=== PATIENT | female | born 1970 | race Caucasian/White ===

== ENCOUNTER → 2016-03-24 | Outpatient (CLI) | payer OTHER, MEDICARE ==
[~2016-03-24] VITALS: Ht 162.6 cm; Wt 130.6 kg
[~2016-03-24] MED LIST: ALLEGRA30 MG/5 ML PO; CALCIUM 600 PLU1 TAB PO; CALCIUM ANTAC1000 M2 PO; CARDIZEM CD360 MG PO; CHEWABLE-V1 TAB.CHEW PO; CINNAMON500 MG PO; COZAAR 50MG50 MG/TAB PO; CYMBALTA 30MG30 MG PO; CYMBALTA 60MG60 MG PO; FLEXERIL 1010 MG/TAB PO; FLINTSTONES COM1 CT1 PO; FLONASEALLERGY NS; HAIRSKINNAILS PO; HCTZ 25MG TAB25 MG PO; HEADACHE RELIE1 EACH PO; HYGROTON 2525 MG/TAB PO; K-DUR 10 MEQ T10 MEQ PO; KLOR-CON M2020 MEQ PO; LAXATIVE MAXIMU25 MG PO; LYRICA 150MG C150 MG PO; LYRICA200 MG PO; MELATONIN3 MG PO; MOBIC 7.5MG7.5 MG PO; NATURE'S BLE1000 MCG PO; NORCO 325 MG-51 TAB PO; NORCO 325 MG-7.1 TAB PO; PHARMASSURE ZIN50 MG PO; PHENERGAN 25 TA25 MG PO; PHENTERMINE15 MG PO; PRENATAL PLUS PO; PRILOSEC 20MG20 MG PO; PROBIOTIC-SUNMARK PO; PROTONIX 40MG T40 MG PO; STOOL SOFTENER100 M2 PO; SYNTHROID 0.0.025 MG PO; SYNTHROID0.075 MG/T PO; TREXIMET 500 MG1 TAB PO; TURMERIC500 MG PO; TYLEINFANT; TYLENOL 8 HR PO; VITAMIN B-1000 MCG/T SL; VITAMIND3 5000 PO; ZOFRAN 4MG T4 MG/TAB PO
[2016-03-24 10:39] VITALS: BP 139/57; PULSE 79
[2016-03-24 11:09] VITALS: BP 139/57; PULSE 79
[2016-03-24 15:50] VITALS: BP 139/57; PULSE 79
[2016-04-06 17:06] VITALS: BP 132/71; PULSE 66
== END ==
LOC: LIGHT 07-30 15:59
DX: I10 Essential (primary) hypertension (principal); E03.8 Other specified hypothyroidism; E66.01 Morbid (severe) obesity due to excess calories; Z68.42 Body mass index [BMI] 45.0-49.9, adult; F33.8 Other recurrent depressive disorders

== ENCOUNTER → 2016-04-21 | Outpatient (CLI) | payer OTHER, MEDICARE ==
[~2016-04-21] VITALS: Ht 162.6 cm; Wt 127.9 kg
== END ==
LOC: LIGHT 08:42
DX: I10 Essential (primary) hypertension (principal); E03.8 Other specified hypothyroidism; E66.01 Morbid (severe) obesity due to excess calories; Z68.42 Body mass index [BMI] 45.0-49.9, adult; F33.8 Other recurrent depressive disorders

== ENCOUNTER → 2016-05-19 | Outpatient (CLI) | payer OTHER, MEDICARE | LOC: BHSO 08:56 | DX: Z01.818 Encounter for other preprocedural examination (principal) ==

== ENCOUNTER → 2016-05-19 | Outpatient (CLI) | payer OTHER, MEDICARE ==
[~2016-05-19] VITALS: Ht 162.6 cm; Wt 129.5 kg
[2016-05-19 13:23] VITALS: BP 154/94; PULSE 60
== END ==
LOC: LIGHT 13:20
DX: I10 Essential (primary) hypertension (principal); F33.8 Other recurrent depressive disorders; E03.8 Other specified hypothyroidism; E66.01 Morbid (severe) obesity due to excess calories; Z68.42 Body mass index [BMI] 45.0-49.9, adult

== ENCOUNTER → 2016-06-27 | Outpatient (CLI) | payer OTHER, MEDICARE ==
[~2016-06-27] VITALS: Ht 162.6 cm; Wt 129.5 kg
[2016-06-27 14:26] VITALS: BP 136/76; PULSE 74
== END ==
LOC: LIGHT 14:20
DX: I10 Essential (primary) hypertension (principal); E03.8 Other specified hypothyroidism; F33.8 Other recurrent depressive disorders; E66.01 Morbid (severe) obesity due to excess calories; Z68.42 Body mass index [BMI] 45.0-49.9, adult; Z90.721 Acquired absence of ovaries, unilateral; Z90.49 Acquired absence of other specified parts of digestive tract

== ENCOUNTER 2016-07-13 09:36 | Day surgery (SDC) | payer OTHER, MEDICARE ==
[~2016-07-13] VITALS: Ht 162.6 cm; Wt 129.1 kg
[~2016-07-13 09:36] MED LIST changes: -ALLEGRA30 MG/5 ML PO; -CALCIUM ANTAC1000 M2 PO; -CHEWABLE-V1 TAB.CHEW PO; -K-DUR 10 MEQ T10 MEQ PO; -LAXATIVE MAXIMU25 MG PO; -NORCO 325 MG-51 TAB PO; -NORCO 325 MG-7.1 TAB PO; -SYNTHROID0.075 MG/T PO; -ZOFRAN 4MG T4 MG/TAB PO
[2016-07-13 10:38] VITALS: BP 141/84; PULSE 79; TEMP 97.9
[2016-07-13] MEDS ORDERED: NATURE'S BLE1000 MCG PO (10:43)
[2016-07-13] MEDS ORDERED: PHARMASSURE ZIN50 MG PO (10:44)
[2016-07-13] MEDS ORDERED: CINNAMON500 MG PO (10:47)
[2016-07-13] MEDS ORDERED: CALCIUM ANTAC1000 M2 PO (10:48)
[2016-07-13] MEDS ORDERED: SYNTHROID 0.0.025 MG PO (10:54)
[2016-07-13] MEDS ORDERED: ALLEGRA30 MG/5 ML PO (11:00)
[2016-07-13 12:08] VITALS: BP 112/78; PULSE 62; TEMP 97.7
[2016-07-13 12:23] VITALS: BP 119/76; PULSE 63
[2016-07-13 12:38] VITALS: BP 113/71; PULSE 56
[2016-07-13 12:53] VITALS: BP 97/60; PULSE 51
[2016-07-13 19:03] VITALS: BP 123/91; PULSE 60
== END 2016-07-13 13:20 | disposition home or self-care (01) ==
LOC: SDCO 09:36
DX: K31.7 Polyp of stomach and duodenum (principal); K44.9 Diaphragmatic hernia without obstruction or gangrene; K29.30 Chronic superficial gastritis without bleeding; M79.7 Fibromyalgia; M19.90 Unspecified osteoarthritis, unspecified site; I10 Essential (primary) hypertension; E03.9 Hypothyroidism, unspecified; K21.9 Gastro-esophageal reflux disease without esophagitis; M51.36 Other intervertebral disc degeneration, lumbar region; F33.9 Major depressive disorder, recurrent, unspecified; F41.1 Generalized anxiety disorder; Z79.899 Other long term (current) drug therapy
CPT/HCPCS: J2250; J2405; J3010; J7030

== ENCOUNTER → 2016-08-09 | Outpatient (CLI) | payer OTHER, MEDICARE ==
[~2016-08-09] MED LIST changes: +ALLEGRA30 MG/5 ML PO; +CALCIUM ANTAC1000 M2 PO; +CHEWABLE-V1 TAB.CHEW PO; +K-DUR 10 MEQ T10 MEQ PO; +LAXATIVE MAXIMU25 MG PO; +NORCO 325 MG-51 TAB PO; +NORCO 325 MG-7.1 TAB PO; +SYNTHROID0.075 MG/T PO; +ZOFRAN 4MG T4 MG/TAB PO
== END ==
LOC: LIGHT 12:17
DX: Z02.89 Encounter for other administrative examinations (principal)

== ENCOUNTER 2016-09-28 08:16 | Inpatient (IN) | payer OTHER, MEDICARE ==
[~2016-09-28] VITALS: Ht 160 cm; Wt 125.0 kg
[2016-09-28] VITALS (12 sets, daily range): BP systolic 97–127; BP diastolic 50–76; PULSE 55–78; TEMP 97.8–98.9
[~2016-09-28 08:16] MED LIST changes: -CHEWABLE-V1 TAB.CHEW PO; -K-DUR 10 MEQ T10 MEQ PO; -LAXATIVE MAXIMU25 MG PO; -NORCO 325 MG-51 TAB PO; -NORCO 325 MG-7.1 TAB PO; -SYNTHROID0.075 MG/T PO; -ZOFRAN 4MG T4 MG/TAB PO
[2016-09-28] MEDS ORDERED: K-DUR 10 MEQ T10 MEQ PO (09:06)
[2016-09-28] MEDS ORDERED: CHEWABLE-V1 TAB.CHEW PO (09:07)
[2016-09-28] MEDS ORDERED: NORCO 325 MG-51 TAB PO (09:13)
[2016-09-28] MEDS ORDERED: SYNTHROID0.075 MG/T PO (09:14)
[2016-09-28] MEDS ORDERED: COZAAR 50MG50 MG/TAB PO (09:15)
[2016-09-28] MEDS ORDERED: LYRICA200 MG PO (09:16)
[2016-09-28] MEDS ORDERED: LYRICA 150MG C150 MG PO (09:16)
[2016-09-28] MEDS ORDERED: PRENATAL PLUS PO (09:18)
[2016-09-28] MEDS ORDERED: LAXATIVE MAXIMU25 MG PO (09:21)
[2016-09-29 01:58] VITALS: BP 122/70; PULSE 69; TEMP 96.7
[2016-09-29 05:56] VITALS: BP 132/58; PULSE 79; TEMP 98.2
[2016-09-29 09:10] VITALS: BP 113/91; PULSE 71; TEMP 97.8
[2016-09-29 13:34] VITALS: BP 105/62; PULSE 62; TEMP 97.5
[2016-09-29] MEDS ORDERED: NORCO 325 MG-7.1 TAB PO (18:09)
[2016-09-29] MEDS ORDERED: ZOFRAN 4MG T4 MG/TAB PO (18:09)
== END 2016-09-29 19:00 | disposition home or self-care (01) | DRG 621 ==
LOC: INPTSU 08:16 → SURG 08:16
PROVIDERS: Surgery
PROC: 0BQR4ZZ (ICD-10-PCS; 2016-09-28)
PROC: 0DB64Z3 Excision of Stomach, Percutaneous Endoscopic Approach, Vertical (ICD-10-PCS; principal; 2016-09-28 10:30)
PROC: 0BQS4ZZ (ICD-10-PCS; 2016-09-28 10:30)
DX: E66.01 Morbid (severe) obesity due to excess calories (principal); K44.9 Diaphragmatic hernia without obstruction or gangrene; I10 Essential (primary) hypertension; E03.9 Hypothyroidism, unspecified; K21.9 Gastro-esophageal reflux disease without esophagitis; M79.7 Fibromyalgia; F41.1 Generalized anxiety disorder; Z68.42 Body mass index [BMI] 45.0-49.9, adult
CPT/HCPCS: A9284; J0330; J0461; J0694; J1100; J1170; J1885; J2270; J2405; J2550; J2704; J2710; J2765; J3010; J7120

== ENCOUNTER → 2016-10-03 | Outpatient (CLI) | payer OTHER, MEDICARE ==
[~2016-10-03] VITALS: Ht 160 cm; Wt 125.6 kg
[~2016-10-03] MED LIST changes: +CHEWABLE-V1 TAB.CHEW PO; +K-DUR 10 MEQ T10 MEQ PO; +LAXATIVE MAXIMU25 MG PO; +NORCO 325 MG-51 TAB PO; +NORCO 325 MG-7.1 TAB PO; +SYNTHROID0.075 MG/T PO; +ZOFRAN 4MG T4 MG/TAB PO
[2016-10-03 14:13] VITALS: BP 106/52; PULSE 68
== END ==
LOC: LIGHT
DX: I10 Essential (primary) hypertension (principal); E03.9 Hypothyroidism, unspecified; E66.01 Morbid (severe) obesity due to excess calories; Z68.42 Body mass index [BMI] 45.0-49.9, adult; Z71.3 Dietary counseling and surveillance; F33.9 Major depressive disorder, recurrent, unspecified

== ENCOUNTER → 2016-10-27 | Outpatient (CLI) | payer OTHER, MEDICARE | LOC: ZCOL.LAB 16:05 | DX: K65.1 Peritoneal abscess (principal) ==

== ENCOUNTER → 2016-10-31 | Outpatient (CLI) | payer OTHER, MEDICARE ==
[~2016-10-31] VITALS: Ht 160 cm; Wt 119.3 kg
[2016-10-31 15:29] VITALS: BP 124/80; PULSE 60
== END ==
LOC: LIGHT 15:05
DX: I10 Essential (primary) hypertension (principal); E03.9 Hypothyroidism, unspecified; E66.01 Morbid (severe) obesity due to excess calories; Z68.42 Body mass index [BMI] 45.0-49.9, adult; Z71.3 Dietary counseling and surveillance; F33.9 Major depressive disorder, recurrent, unspecified

== ENCOUNTER 2016-11-19 18:45 | Inpatient (IN) | payer OTHER, MEDICARE ==
[~2016-11-19] VITALS: Ht 162.6 cm; Wt 121.4 kg
[2016-11-19 20:11] LABS: BASO % 0.3 % (0.0-2.0); EOS # 0.1 (0.0-0.7); EOS % 0.4 % (0-4.0); GRAN # 8.5 (1.4-6.5); GRAN % 73.3 % (42.2-75.2); HEMATOCRIT 38.3 % (37.0-47.0); HEMOGLOBIN 12.8 g/dl (12.5-16.0); LYMPH # 2.3 (1.2-3.4); LYMPH % 19.5 % (20.0-51.0); MEAN CELL VOLUME 87 fl (80.0-100.0); MEAN CORPUSCULAR HEMOGLOBIN 29 pg (27.0-31.0); MEAN CORPUSCULAR HGB CONC 33 g/dl (33.0-37.0); MONO # 0.7 (0.1-0.6); MONO % 6.1 % (1.7-9.3); PLATELET COUNT 267 K/mm3 (130-400); RED BLOOD COUNT 4.39 M/mm3 (4.10-5.30); REDCELL DISTRIBUTION WIDTH-CV 14.9 % (11.5-14.5); WHITE BLOOD COUNT 11.6 K/mm3 (4.8-10.8)
[2016-11-19 20:14] LABS: PH 5 (5-8); URINE APPEARANCE Hazy; URINE BACTERIA Rare /hpf; URINE BILIRUBIN Negative (NEGATIVE); URINE BLOOD Negative (NEGATIVE); URINE COLOR Amber; URINE GLUCOSE Negative (NEGATIVE); URINE KETONE Negative (NEGATIVE); URINE RBC 0-2 /hpf; URINE WBC 0-2 /hpf
[2016-11-19 20:23] LABS: ADJUSTED CALCIUM 8.9 mg/dL (8.4-10.2); ALBUMIN 4.2 gm/dL (3.5-5.0); BILIRUBIN,TOTAL 0.6 mg/dL (0.0-1.0); C-REACTIVE PROTEIN 6.6 mg/dL (0.0-0.9); CALCIUM 9.1 mg/dL (8.4-10.2); CREATININE, serum 0.8 mg/dL (0.52-1.25); POTASSIUM 3.7 mmol/L (3.4-5.0); TOTAL PROTEIN 7.9 gm/dL (6.4-8.2)
[2016-11-19 22:57] VITALS: BP 147/69; PULSE 69; TEMP 98.4
[2016-11-20 01:19] VITALS: BP 140/81; PULSE 67; TEMP 98.3
[2016-11-20 05:25] VITALS: BP 117/59; PULSE 58; TEMP 97.7
[2016-11-20 08:00] VITALS: BP 134/77; PULSE 69; TEMP 98.3
[2016-11-20 12:50] VITALS: BP 119/51; PULSE 78; TEMP 98.4
[2016-11-20 13:00] VITALS: BP 135/67; PULSE 63; TEMP 98.5
[2016-11-20 13:15] VITALS: BP 102/55; PULSE 66; TEMP 98
== END 2016-11-20 15:20 | disposition home or self-care (01) | DRG 857 ==
LOC: COL.ER 18:45 → SURG 21:50
PROVIDERS: Emergency Medicine; Surgery
PROC: 0W9F00Z Drainage of Abdominal Wall with Drainage Device, Open Approach (ICD-10-PCS; principal; 2016-11-20 11:58)
DX: T81.4XXA Infection following a procedure, initial encounter (principal); L02.211 Cutaneous abscess of abdominal wall; Z68.42 Body mass index [BMI] 45.0-49.9, adult; B95.4 Other streptococcus as the cause of diseases classified elsewhere; E66.01 Morbid (severe) obesity due to excess calories; Z98.84 Bariatric surgery status; I10 Essential (primary) hypertension; M79.7 Fibromyalgia; F41.1 Generalized anxiety disorder; Z85.43 Personal history of malignant neoplasm of ovary
CPT/HCPCS: J2550; J2704; J3010; J7030; J7060; J7120; Q9967

== ENCOUNTER → 2017-01-09 | Outpatient (CLI) | payer OTHER, MEDICARE ==
[~2017-01-09] VITALS: Ht 162.6 cm; Wt 113.9 kg
[2017-01-09 14:46] VITALS: BP 142/88; PULSE 60
== END ==
LOC: LIGHT 10:11 → SUN.DIA 02-09 10:30 → LIGHT 02-09 10:35
DX: I10 Essential (primary) hypertension (principal); E03.9 Hypothyroidism, unspecified; E66.01 Morbid (severe) obesity due to excess calories; Z68.41 Body mass index [BMI] 40.0-44.9, adult; Z71.3 Dietary counseling and surveillance; F33.9 Major depressive disorder, recurrent, unspecified

== ENCOUNTER → 2017-04-03 | Outpatient (CLI) | payer OTHER, MEDICARE ==
[~2017-04-03] VITALS: Ht 162.6 cm; Wt 110.9 kg
== END ==
LOC: LIGHT 12-26 12:20
DX: I10 Essential (primary) hypertension (principal); E03.9 Hypothyroidism, unspecified; E66.01 Morbid (severe) obesity due to excess calories; Z68.41 Body mass index [BMI] 40.0-44.9, adult; Z71.3 Dietary counseling and surveillance; F33.9 Major depressive disorder, recurrent, unspecified
CPT/HCPCS: G0463

== ENCOUNTER → 2017-09-22 | Outpatient (CLI) | payer OTHER, MEDICARE | LOC: COL.RAD 09:45 | DX: R10.11 Right upper quadrant pain (principal) | CPT/HCPCS: A9537 ==

== ENCOUNTER 2017-10-03 13:12 | Day surgery (SDC) | payer OTHER, MEDICARE ==
[~2017-10-03] VITALS: Ht 162.6 cm; Wt 107.3 kg
[~2017-10-03 13:12] MED LIST changes: +COZAAR100 MG PO; +SYNTHROID0.05 MG/TA PO; -SYNTHROID0.075 MG/T PO
[2017-10-03] MEDS ORDERED: ESTRACE 1MG1 MG/TAB PO (14:03)
[2017-10-03 14:18] VITALS: BP 137/91; PULSE 52; TEMP 98.5
[2017-10-03] MEDS ORDERED: EFFEXOR-XR150 MG PO (14:31)
[2017-10-03 18:20] VITALS: BP 149/89; PULSE 62; TEMP 97.5
[2017-10-03 18:40] VITALS: BP 165/95; PULSE 50
[2017-10-03 18:50] VITALS: BP 162/92; PULSE 74
[2017-10-03] MEDS ORDERED: ULTRAM 50MG TAB50 MG PO (18:53)
[2017-10-03] MEDS ORDERED: TYLENOL 500MG500 MG PO (18:56)
[2017-10-03 19:05] VITALS: BP 163/83; PULSE 57
[2017-10-03 19:35] VITALS: BP 148/94; PULSE 88
== END 2017-10-03 19:55 | disposition home or self-care (01) ==
LOC: SDCO 13:12
DX: K81.9 Cholecystitis, unspecified (principal); G43.909 Migraine, unspecified, not intractable, without status migrainosus; I10 Essential (primary) hypertension; E11.9 Type 2 diabetes mellitus without complications; K21.9 Gastro-esophageal reflux disease without esophagitis; M19.90 Unspecified osteoarthritis, unspecified site; E03.9 Hypothyroidism, unspecified; G47.33 Obstructive sleep apnea (adult) (pediatric); Z80.41 Family history of malignant neoplasm of ovary; Z79.51 Long term (current) use of inhaled steroids; Z83.3 Family history of diabetes mellitus; Z88.2 Allergy status to sulfonamides
CPT/HCPCS: J0690; J1100; J1170; J2405; J2704; J7120

== ENCOUNTER → 2017-10-16 | Outpatient (CLI) | payer OTHER, MEDICARE ==
[~2017-10-16] VITALS: Ht 162.6 cm; Wt 107.3 kg
[~2017-10-16] MED LIST changes: +EFFEXOR-XR150 MG PO; +ESTRACE 1MG1 MG/TAB PO; +TYLENOL 500MG500 MG PO; +ULTRAM 50MG TAB50 MG PO
[2017-10-16 15:17] VITALS: BP 134/90; PULSE 64
== END ==
LOC: LIGHT 10-02 09:25
DX: E03.9 Hypothyroidism, unspecified (principal); F32.9 Major depressive disorder, single episode, unspecified; E66.01 Morbid (severe) obesity due to excess calories; Z68.41 Body mass index [BMI] 40.0-44.9, adult; Z71.3 Dietary counseling and surveillance; Z98.84 Bariatric surgery status
CPT/HCPCS: G0463

== ENCOUNTER → 2018-05-15 | Outpatient (CLI) | payer OTHER, MEDICARE | LOC: COL.RAD 07:01 | DX: M48.061 Spinal stenosis, lumbar region without neurogenic claudication (principal); M51.26 Other intervertebral disc displacement, lumbar region; G56.93 Unspecified mononeuropathy of bilateral upper limbs; G57.93 Unspecified mononeuropathy of bilateral lower limbs ==

== ENCOUNTER → 2018-10-15 | Outpatient (CLI) | payer OTHER, MEDICARE ==
[~2018-10-15] VITALS: Ht 162.6 cm; Wt 101.4 kg
[~2018-10-15] MED LIST changes: -EFFEXOR-XR150 MG PO; +PROBIOTIC-MAJOR PO; +VENLAFAXINE225 MG PO
[2018-10-15 16:24] VITALS: BP 112/50; PULSE 60
== END ==
LOC: LIGHT 13:45
DX: E03.9 Hypothyroidism, unspecified (principal); Z98.84 Bariatric surgery status; F32.9 Major depressive disorder, single episode, unspecified; E66.01 Morbid (severe) obesity due to excess calories; Z68.38 Body mass index [BMI] 38.0-38.9, adult; Z71.3 Dietary counseling and surveillance
CPT/HCPCS: G0463